=== PATIENT | male | born 2000 | race Two or more races ===

== ENCOUNTER 2018-06-03 15:55 | Emergency (ER) | payer OTHER ==
[~2018-06-03] VITALS: Ht 172.7 cm; Wt 68.8 kg
--- NOTE | 2018-06-03 16:50 | PHYS DOC ---
Past History Past Medical History: No Pertinent History Past Surgical History: No Surgical History Alcohol Use: None Drug Use: None Adult General Chief Complaint Chief Complaint: EYE PROBLEMS HPI HPI 18-year-old otherwise healthy male presents with some left eye redness. He states this is been off and on for a few weeks now. It's itchy and red and seems worse after he showers. Is primarily in the left eye the right eye is affected as well. Patient denies any vision loss. He states it started when he had a change in hair products.[] Review of Systems Review of Systems Constitutional: Denies fever or chills [] Eyes: Some redness left eye as described in history of present illness[] HENT: Denies nasal congestion or sore throat [] Respiratory: Denies cough or shortness of breath [] All other systems were reviewed and found to be within normal limits, except as documented in this note. Allergies Allergies Allergies Coded Allergies Type Severity Reaction Last Updated Verified No Known Drug Allergies 06/03/18 No Physical Exam Physical Exam Constitutional: Well developed, well nourished, no acute distress, non-toxic appearance. [] HENT: Normocephalic, atraumatic, bilateral external ears normal, oropharynx moist, no oral exudates, nose normal. [] Eyes: Mild corneal injection OS, no significant injection OD funduscopic exam bilaterally was normal ocular compression test was negative. [] Neck: Normal range of motion, no tenderness, supple, no stridor. [] Cardiovascular:Heart rate regular rhythm, no murmur [] Lungs & Thorax: Bilateral breath sounds clear to auscultation [] Abdomen: Bowel sounds normal, soft, no tenderness, no masses, no pulsatile masses. [] Current Patient Data Vital Signs Vital Signs Date Time Temp Pulse Resp B/P (MAP) Pulse Ox O2 Delivery O2 Flow Rate FiO2 06/03/18 15:55 97.9 84 18 96 Room Air EKG EKG [] Radiology/Procedures Radiology/Procedures [] Course & Med Decision Making Course & Med Decision Making Pertinent Labs and Imaging studies reviewed. (See chart for details) [] Dragon Disclaimer Dragon Disclaimer This electronic medical record was generated, in whole or in part, using a voice recognition dictation system. Departure Departure: Impression: Primary Impression: Allergic conjunctivitis Disposition: 01 HOME, SELF-CARE Condition: STABLE Referrals: ROJELIO SALCEDO DO Call his office tomorrow and make a follow-up appointment Patient Instructions: Allergic Conjunctivitis Additional Instructions: Go to the pharmacy and buy antihistamine eyedrops. You can ask the pharmacist to help you select the most appropriate product. Problem Qualifiers Primary Impression: Allergic conjunctivitis Laterality: left Qualified Codes: H10.12 - Acute atopic conjunctivitis, left eye CEFERINO OLIVER DO Jun 03, 2018 16:50
[2018-06-03 16:56] VITALS: BP 100/52
== END 2018-06-03 16:57 | disposition home or self-care (01) ==
LOC: ER 15:55
DX: H10.12 Acute atopic conjunctivitis, left eye (principal)
CPT/HCPCS: 99283

== ENCOUNTER 2020-04-14 18:27 | Emergency (ER) | payer OTHER ==
[~2020-04-14] VITALS: Ht 172.7 cm; Wt 72.7 kg
[2020-04-14 18:27] VITALS: BP 112/84
[2020-04-14] MEDS ORDERED: IBUPROFEN 600 MG TABLET. PO ONE (19:45)
[2020-04-14] MEDS ORDERED: ACETAMINOPHEN 500 MG TABLET PO ONE (19:45)
[2020-04-14] MEDS ORDERED: BENZOCAINE/MENTHOL LOZNGE 18'S BOX. PO PRN (19:45)
--- NOTE | 2020-04-14 20:23 | PHYS DOC ---
Past History Past Medical History: No Pertinent History Past Surgical History: No Surgical History Alcohol Use: None Drug Use: None Adult General Chief Complaint Chief Complaint: FEVER HPI HPI Patient is a 20-year-old male, otherwise healthy who presents with a chief complaint of sore throat and fever for the past 4 days. States that it started approximately 4 days ago with a sore throat and the fever began yesterday. States he took 1 dose of ibuprofen yesterday which did not really seem to help much. 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 Denies headache, cough, chest pain, shortness of breath, abdominal pain, nausea, vomiting. States he is otherwise eating and drinking normally despite the sore throat. States he is making urine and stool normally for him. Review of Systems Review of Systems Review of systems otherwise unremarkable except for noted in HPI. Current Medications Current Medications Current Medications Medications (Trade) Dose Ordered Sig/Reena Start Time Stop Time Status Last Admin Dose Admin Acetaminophen (Tylenol) 1,000 mg 1X ONCE 04/14/20 19:45 04/14/20 19:46 DC 04/14/20 19:48 1,000 MG Ibuprofen (Motrin) 600 mg 1X ONCE 04/14/20 19:45 04/14/20 19:46 DC 04/14/20 19:48 600 MG Throat Lozenges (Cepacol Sore Throat Lozenge) 1 cm PRN Q2HR PRN 04/14/20 19:45 Allergies Allergies Allergies Coded Allergies Type Severity Reaction Last Updated Verified No Known Drug Allergies 06/03/18 No Physical Exam Physical Exam Constitutional: Well developed, well nourished, no acute distress, non-toxic appearance. [] HENT: Normocephalic, atraumatic, bilateral external ears normal, oropharynx erythematous with enlarged tonsils bilaterally and a small amount of exudate bilaterally, left-sided cervical lymphadenopathy Eyes: PERRLA, EOMI, conjunctiva normal, no discharge. [] Neck: Normal range of motion, no tenderness, supple, no stridor. [] Cardiovascular:Heart rate regular rhythm, no murmur [] Lungs & Thorax: Bilateral breath sounds clear to auscultation [] Abdomen: Bowel sounds normal, soft, no tenderness, no masses, no pulsatile masses. [] Skin: Warm, dry, no erythema, no rash. [] Back: No tenderness, no CVA tenderness. [] Extremities: No tenderness, no cyanosis, no clubbing, ROM intact, no edema. [] Neurologic: Alert and oriented X 3, normal motor function, normal sensory function, no focal deficits noted. [] Psychologic: Affect normal, judgement normal, mood normal. [] Current Patient Data Vital Signs Vital Signs Date Time Temp Pulse Resp B/P (MAP) Pulse Ox O2 Delivery O2 Flow Rate FiO2 04/14/20 18:27 102.7 95 18 112/84 (93) 96 Room Air EKG EKG [] Radiology/Procedures Radiology/Procedures Checks x-ray not concerning. [] Heart Score Risk Factors: Risk Factors: DM, Current or recent (<one month) smoker, HTN, HLP, family history of CAD, obesity. Risk Scores: Risk Factors: DM, Current or recent (<one month) smoker, HTN, HLP, family history of CAD, obesity. Course & Med Decision Making Course & Med Decision Making Patient is a 20-year-old male who presents with 4 days of sore throat and fever Vital signs notable for fever. Physical exam noted above. Patient given Tylenol, ibuprofen and Cepacol lozenge. Chest x-ray not concerning. Strep negative. Covid pending. Discussed findings with patient and recommended quarantining until Covid test results. Stated we would let him know as soon as it comes in as it could be 24 to 48 hours. Given education on Covid and Covid quarantine. Given [facility] website as well. Given work note. Discussed conservative treatment at home with Tylenol, ibuprofen, lozenges and the need to stay hydrated and eat properly. Advised to come back to the ED with new or concerning symptoms. Patient grateful, verbalized understanding and agreed with plan of discharge. [] Dragon Disclaimer Dragon Disclaimer This electronic medical record was generated, in whole or in part, using a voice recognition dictation system. Departure Departure: Disposition: 01 DC HOME SELF CARE/HOMELESS Condition: GOOD Referrals: PCP,UNKNOWN (PCP) Additional Instructions: You have been tested for or diagnosed with COVID-19. It is an infection caused by a new type of coronavirus. COVID-19 will cause cold-like or mild flu symptoms in most. It can cause more severe symptoms like problems breathing in some. There is no treatment for COVID-19. The body will clear the infection over time. Self-care will help to ease discomfort. Steps to Take: Self-Care Rest as needed. Healthy habits may help you feel better. Steps include: Choose healthy foods including fruits and vegetables. Drink water throughout the day. Get plenty of sleep each night. If you smoke, try to quit. It may ease breathing. Avoid alcohol. Keep Others Healthy The virus can spread to others. Droplets are released every time you sneeze or cough. The droplets can get into the mouth, nose, or eyes of people near you and lead to infection. To lower the chances of spreading COVID-19 to others: Stay at home until your doctor has said it is safe to leave. If you tested positive this will mean staying isolated until both of the following are true: At least 7 days have passed since the start of illness. You are free of fever for at least 72 hours without the use of medicine. During this time: - Avoid public areas, events, or transportation. Do not return to work or school until your doctor has said it is safe to do so. - Call ahead if you need to go to a medical center. Let them know you may have COVID-19. It will help them guide you where to go. They may also ask you to wear a facemask when you come to the office. - If you call for emergency medical services, let them know you may have COVID- 19. While at home: - Try to avoid close contact with others. Stay about 6 feet away. - If possible, spend most of your time in a separate room from others. - Use a face mask if you will be in close contact with others such as sharing a room or vehicle. - Have someone wipe down common surfaces in the home. Use household noxious weeds and pest inspector every day on areas like doorknobs, counters, or sinks. - Cough or sneeze into a tissue. Throw the tissue away right after use. If a tissue is not available, cough or sneeze into your elbow. - Wash your hands often. Wash them after sneezing or coughing. Use soap and water and wash for at least 20 seconds. Alcohol based hand pipe cleaner can be used if soap and water is not available. - Do not prepare food for others. Avoid sharing personal items like forks, spoons, or toothbrushes. - Avoid close contact with pets while you are sick. There is no evidence of the virus passing to pets. This is a safety step until more is known about this virus. Isolation can be frustrating. Social interaction can help. Keep in touch with friends and family through phone and tech options. You can still interact with others in your home, just keep a safe distance of about 6 feet. Follow-up: Your doctors office will check in with you to see if there are any changes in your health. You may be asked to keep track of symptoms to share with them. They will also let you know when you are clear to be in public again. Problems to Look Out For: Contact your doctor if your recovery is not going as you expect. Get emergency care if you have problems such as: - Trouble breathing - Nonstop chest pain or pressure - Changes in awareness, confusion, or problems waking - Lips or face have bluish color - Worsening of symptoms If you think you have an emergency, call for emergency medical services right away. [facility] from [facility] MD Apr 14, 2020 20:23
--- NOTE | 2020-04-14 20:44 | RAD ---
AP chest. HISTORY: Fever, cough AP view was taken of the chest. Lungs are clear. Heart is normal in size. There is no pleural effusio n. IMPRESSION: 1. No acute chest disease. Electronically signed by: Tremaine Ferrara MD (04/14/2020 8:41 PM) [facility]
--- NOTE | 2020-04-16 10:38 | NUR ---
IP: attempt to notify patient of COVID result, left callback message.
--- NOTE | 2020-04-16 11:28 | NUR ---
IP: notified patient of COVID result.
== END 2020-04-14 21:19 | disposition home or self-care (01) ==
LOC: ER 18:27
DX: J02.9 Acute pharyngitis, unspecified (principal); Z20.822 Contact with and (suspected) exposure to COVID-19; R50.9 Fever, unspecified; L53.9 Erythematous condition, unspecified
CPT/HCPCS: 71045; 87070; 87880; 99284; C9803; U0003